=== PATIENT | female | born 1965 | race Caucasian/White ===

== ENCOUNTER 2020-07-06 09:00 | Emergency (ER) | payer OTHER ==
[2020-07-06 09:17] VITALS: BP 150/96; PULSE 88
--- NOTE | 2020-07-06 09:29 | EDM.PDOC ---
ED HPI GENERAL MEDICAL PROBLEM - General Chief Complaint: Respiratory Problem Stated Complaint: POST COVID FATIGUE,FLUID RETENSION SOB Time Seen by Provider: 07/06/20 09:24 Source of Information: Reports: Patient History Limitations: Reports: No Limitations - History of Present Illness INITIAL COMMENTS - FREE TEXT/NARRATIVE: 55-year-old female presents to the ED feeling increased shortness of breath on minimal exertion. She had COVID-19 illness back in December 2019 which really took its toll on her in terms of fatigue dyspnea cough and weakness. She states on minimal exertion today she developed O2 sats of 89%. She is aware of dyspnea on exertion. At rest her sats went up to 97% lying in bed. She denies cough or sputum production. No fever or chills. No central chest pain. She has no history of asthma. She does have a history of subclinical hypothyroidism and is to get her TSH checked shortly and therefore will be done today. Other medications include metoprolol tartrate 50 mg daily for hypertension and Mirapex at bedtime for restless leg syndrome. She denies any orthopnea or PND. Onset: Gradual Onset Date: 06/29/20 (Gradual worsening dyspnea over the last week.) Duration: Week(s):, Getting Worse, Waxing/Waning Location: Reports: Chest (Dyspnea on minimal exertion.) Quality: Reports: Other Severity: Moderate (Dyspnea.) Improves with: Reports: Rest Worsens with: Reports: Other Context: Reports: Activity. Denies: Exercise, Lifting, Sick Contact, Trauma, Other Associated Symptoms: Reports: Malaise. 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.) - Related Data Allergies Allergy/AdvReac Type Severity Reaction Status Date / Time haloperidol [From Haldol] Allergy Rash Verified 07/06/20 09:18 metoclopramide HCl AdvReac Tachycardia Verified 07/06/20 09:17 [From Reglan] morphine AdvReac Tachycardia Verified 07/06/20 09:17 prochlorperazine maleate AdvReac Tachycardia Verified 07/06/20 09:17 [From Compazine] Home Meds: Home Meds Metoprolol Tartrate [Lopressor] 50 mg PO DAILY 06/26/13 [History] Pramipexole [Mirapex] 0.5 mg PO BEDTIME 01/27/18 [History] Past Medical History HEENT History: Reports: Impaired Vision Cardiovascular History: Reports: Hypertension Genitourinary History: Reports: Renal Calculus Other Genitourinary History: kidney stones 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 Musculoskeletal History: collar bone Neurological History: Reports: Migraines, Other (See Below) Other Neuro History: fibromyalgia Psychiatric History: Reports: Depression Endocrine/Metabolic History: Reports: Obesity/BMI 30+ Hematologic History: Reports: Other (See Below) Immunologic History: Reports: Other (See Below) Other Immunologic History: undiagnosed autoimmune disorder - Infectious Disease History Infectious Disease History: Reports: Chicken Pox, Novel Coronavirus Other Infectious Disease History: covid Dec 2019 - Past Surgical History HEENT Surgical History: Reports: Tonsillectomy GI Surgical History: Reports: Cholecystectomy Female Surgical History: Reports: Hysterectomy, Other (See Below) Social & Family History - Family History Family Medical History: No Pertinent Family History - Tobacco Use Tobacco Use Status *Q: Never Tobacco User - Caffeine Use Caffeine Use: Reports: Coffee - Recreational Drug Use Recreational Drug Use: No - Living Situation & Occupation Living situation: Reports: , with Spouse, with Family (1 child) Occupation: Employed (RN at the [employer]) ED ROS GENERAL - Review of Systems Review Of Systems: See Below Constitutional: Reports: Malaise, Weakness, Fatigue, Decreased Appetite. Denies: Fever, Chills HEENT: Reports: Glasses Respiratory: Reports: Shortness of Breath. Denies: Wheezing, Pleuritic Chest Pain, Cough, Sputum, Hemoptysis, Other Cardiovascular: Reports: Blood Pressure Problem, Dyspnea on Exertion (Mild edema lower extremities.), Edema. Denies: Chest Pain, Claudication, Lightheadedness, Orthopnea, Palpitations Endocrine: Reports: Fatigue GI/Abdominal: Reports: Decreased Appetite : Reports: No Symptoms Musculoskeletal: Reports: Back Pain Skin: Reports: No Symptoms Neurological: Reports: No Symptoms Psychiatric: Reports: No Symptoms Hematologic/Lymphatic: Reports: No Symptoms Immunologic: Reports: No Symptoms ED EXAM, GENERAL - Physical Exam Exam: See Below Exam Limited By: No Limitations General Appearance: Alert, WD/WN, No Apparent Distress, Other (Temperature is 36.2. Heart rate 88 and sinus respiratory 17 with O2 sats of 95% room air BP 150/96.) Eye Exam: Bilateral Eye: Normal Inspection (No blepharal pallor or scleral icterus.), PERRL Throat/Mouth: Normal Inspection, Normal Lips, Normal Oropharynx Head: Atraumatic, Normocephalic Neck: Normal Inspection, Supple, Non-Tender, Full Range of Motion. No: Lymphadenopathy (L), Lymphadenopathy (R), Thyromegaly Respiratory/Chest: No Respiratory Distress, Lungs Clear, Normal Breath Sounds, No Accessory Muscle Use Cardiovascular: Normal Peripheral Pulses, Regular Rate, Rhythm, No Edema, No Gallop, No Murmur, No Rub Peripheral Pulses: 3+: Carotid (L), Carotid (R), Posterior Tibial (L), Posterior Tibial (R), Dorsalis Pedis (L), Dorsalis Pedis (R) Back Exam: Normal Inspection, Full Range of Motion. No: CVA Tenderness (L), CVA Tenderness (R) Extremities: Normal Inspection, Normal Range of Motion (Trace pitting edema around the ankles.), Non-Tender, Pedal Edema, Other Neurological: Alert, Oriented, CN II-XII Intact, Normal Cognition, Normal Gait Psychiatric: Normal Affect, Normal Mood Skin Exam: Warm, Dry (Compression of her lower extremities reveals no evidence of DVT clinically.), Intact, Normal Color, No Rash #1 Interpretation EKG Date: 07/06/20 Time: 09:48 Rhythm: NSR Rate (Beats/Min): 76 [place]: Normal P-Wave: Present QRS: Normal ST-T: Normal QT: Normal EKG Interpretation Comments: Normal ECG Course - Vital Signs Last Recorded V/S: Last Vital Signs Temp 36.2 C 07/06/20 09:13 Pulse 88 07/06/20 09:13 Resp 17 07/06/20 09:13 BP 150/96 H 07/06/20 09:13 Pulse Ox 95 07/06/20 09:13 - Orders/Labs/Meds Orders: Active Orders 24 hr Category Date Time Status EKG Documentation Completion [RC] STAT Care 07/06/20 09:26 Active Chest 1V Frontal [CR] Stat Exams 07/06/20 09:24 Taken Labs: Laboratory Tests 07/06/20 07/06/20 07/06/20 Range/Units 09:36 09:36 09:36 WBC 6.82 (3.98-10.04) K/mm3 RBC 4.96 (3.98-5.22) M/mm3 Hgb 14.8 (11.2-15.7) gm/dl Hct 47.7 H (34.1-44.9) % MCV 96.2 H D (79.4-94.8) fl MCH 29.8 (25.6-32.2) pg MCHC 31.0 L (32.2-35.5) g/dl RDW Std Deviation 48.3 H (36.4-46.3) fL Plt Count 234 (182-369) K/mm3 MPV 10.2 (9.4-12.3) fl Neut % (Auto) 58.5 (34.0-71.1) % Lymph % (Auto) 30.9 (19.3-51.7) % [place] % (Auto) 7.5 (4.7-12.5) % Eos % (Auto) 2.1 (0.7-5.8) Baso % (Auto) 0.6 (0.1-1.2) % Neut # (Auto) 3.99 (1.56-6.13) K/mm3 Lymph # (Auto) 2.11 (1.18-3.74) K/mm3 [place] # (Auto) 0.51 H (0.24-0.36) K/mm3 Eos # (Auto) 0.14 (0.04-0.36) K/mm3 Baso # (Auto) 0.04 (0.01-0.08) K/mm3 PT (9.7-12.0) SECONDS INR D-Dimer, Quantitative 0.30 (0.19-0.50) mg/L Sodium 143 (136-145) mEq/L Potassium 4.9 (3.5-5.1) mEq/L Chloride 106 (98-107) mEq/L Carbon Dioxide 28 (21-32) mEq/L Anion Gap 13.9 (5-15) BUN 16 (7-18) mg/dL Creatinine 1.2 H (0.55-1.02) mg/dL Est Cr Clr Drug Dosing 44.66 mL/min Estimated GFR (MDRD) 46 (>60) mL/min BUN/Creatinine Ratio 13.3 L (14-18) Glucose 141 H (70-99) mg/dL Calcium 8.9 (8.5-10.1) mg/dL Magnesium 1.9 (1.8-2.4) mg/dL Total Bilirubin 0.3 (0.2-1.0) mg/dL AST 27 (15-37) U/L ALT 51 (14-59) U/L Alkaline Phosphatase 60 (46-116) U/L C-Reactive Protein 0.7 (<1.0) mg/dL NT-Pro-B Natriuret Pep (0-125) pg/mL Total Protein 7.3 (6.4-8.2) g/dl Albumin 3.9 (3.4-5.0) g/dl Globulin 3.4 gm/dL Albumin/Globulin Ratio 1.2 (1-2) TSH 3rd Generation 1.396 (0.358-3.74) uIU/mL 07/06/20 07/06/20 Range/Units 09:36 09:36 WBC (3.98-10.04) K/mm3 RBC (3.98-5.22) M/mm3 Hgb (11.2-15.7) gm/dl Hct (34.1-44.9) % MCV (79.4-94.8) fl MCH (25.6-32.2) pg MCHC (32.2-35.5) g/dl RDW Std Deviation (36.4-46.3) fL Plt Count (182-369) K/mm3 MPV (9.4-12.3) fl Neut % (Auto) (34.0-71.1) % Lymph % (Auto) (19.3-51.7) % [place] % (Auto) (4.7-12.5) % Eos % (Auto) (0.7-5.8) Baso % (Auto) (0.1-1.2) % Neut # (Auto) (1.56-6.13) K/mm3 Lymph # (Auto) (1.18-3.74) K/mm3 [place] # (Auto) (0.24-0.36) K/mm3 Eos # (Auto) (0.04-0.36) K/mm3 Baso # (Auto) (0.01-0.08) K/mm3 PT 9.9 (9.7-12.0) SECONDS INR < 0.93 D-Dimer, Quantitative (0.19-0.50) mg/L Sodium (136-145) mEq/L Potassium (3.5-5.1) mEq/L Chloride (98-107) mEq/L Carbon Dioxide (21-32) mEq/L Anion Gap (5-15) BUN (7-18) mg/dL Creatinine (0.55-1.02) mg/dL Est Cr Clr Drug Dosing mL/min Estimated GFR (MDRD) (>60) mL/min BUN/Creatinine Ratio (14-18) Glucose (70-99) mg/dL Calcium (8.5-10.1) mg/dL Magnesium (1.8-2.4) mg/dL Total Bilirubin (0.2-1.0) mg/dL AST (15-37) U/L ALT (14-59) U/L Alkaline Phosphatase (46-116) U/L C-Reactive Protein (<1.0) mg/dL NT-Pro-B Natriuret Pep 84 (0-125) pg/mL Total Protein (6.4-8.2) g/dl Albumin (3.4-5.0) g/dl Globulin gm/dL Albumin/Globulin Ratio (1-2) TSH 3rd Generation (0.358-3.74) uIU/mL - Radiology Interpretation Free Text/Narrative:: 55-year-old female presents to the ED with dyspnea on minimal exertion. She feels this has been present ever since she had COVID-19 illness in December last year. Seems to be getting worse rather than better particularly of note lately over the last week. Minimal exertion will cause dyspnea O2 sats went down to 89% on exertion prior to coming to the ED. Examination reveals a few crackles lung bases that clear with coughing and suspect this is due to atelectasis. Heart is sinus and regular. JVD is not elevated. No significant dependent edema. No clinical evidence of DVT in either leg. Plan ECG to be done. Chest x-ray portably. Routine labs to be done as well as a D-dimer and a TSH. - Re-Assessments/Exams Free Text/Narrative Re-Assessment/Exam: 07/06/20 10:13 chest x-ray done portably reveals normal cardiac silhouette. Perhaps very mild diffuse vascular congestion pattern. No pneumothorax no pleural effusion. 07/06/20 10:22 White count is normal at 6.82. The differential shows 59% neutrophils. Hemoglobin is 14.8 with hematocrit of 47.7. MCV is 96.2. Platelet count 234,000. PT is 9.9 with an INR of less than 0.93. D-dimer is 0.30. 07/06/20 10:34 Sodium is 143 with a potassium of 4.9. Chloride 106 with a bicarb of 28. Anion gap is 13.9. BUN is 16 with a creatinine of 1.2. Estimated GFR is 46. Glucose is 141. Calcium 8.9 with a magnesium of 1.9. Total bilirubin is 0.3 liver function normal. C-reactive protein 0.7 BNP 84. Total protein 7.3 albumin fraction 3.9 TSH was 1.396 normal 07/06/20 10:47: Went over the results with the patient. Nothing untoward was identified. It appears that she does have a form of deconditioning and likely secondary to post Covid 19 pneumonia. Discussed trying to rehabilitate her lungs by increasing gradual exercise programs. Patient was reassured to know that there was no sign of congestive heart failure and certainly no sign of pulmonary embolism. No other treatment was provided at this time. Departure - Departure Time of Disposition: 10:48 Disposition: Home, Self-Care 01 Condition: Fair Clinical Impression: SOB (shortness of breath) on exertion, Post-acute COVID-19 syndrome - Discharge Information Referrals: Jayden Lewis MD [Primary Care Provider] - Forms: ED Department Discharge Additional Instructions: Evaluation in the emergency room today in regards to low O2 sats that occurred on minimal exertion. Diagnosed with COVID-19 illness late last year which seem to affect you a good deal by history. Work-up done today through the emergency room today was to make sure there was no blood clots in your lungs and you had a normal D-dimer evaluation at 0.30 with no signs of blood clot in your lung. C hest x-ray also appeared to be within normal limits with no sign of any pneumonia or scar tissue or inflammation. There is no evidence of heart related illness. Clinically you have post COVID-19 illness. Treatment is to try and gradually increase exercise to improve stamina of the lungs to recover from this illness. Of note thyroid function today was also within normal limits. Results of these tests will be sent to Dr. Fowler. Sepsis Event Note (ED) - Evaluation Sepsis Screening Result: No Definite Risk - Focused Exam Vital Signs: Vital Signs Temp Pulse Resp BP Pulse Ox 07/06/20 09:13 36.2 C 88 17 150/96 H 95 - My Orders Last 24 Hours: My Active Orders 07/06/20 09:24 Chest 1V Frontal [CR] Stat 07/06/20 09:26 EKG Documentation Completion [RC] STAT - Assessment/Plan Last 24 Hours: My Active Orders 07/06/20 09:24 Chest 1V Frontal [CR] Stat 07/06/20 09:26 EKG Documentation Completion [RC] STAT
--- NOTE | 2020-07-06 11:06 | CR ---
Chest: Portable view of the chest was obtained. Comparison: Prior chest x-ray of 07/23/15. Heart size is within normal limits. Tortuous thoracic aorta is noted. Questionable minimal density is seen within the periphery of both lungs. Lungs otherwise are clear. Bony structures are grossly intact. Impression: 1. Possible mild parenchymal density peripherally within both lungs presumably due to mild Covid-19 pneumonia. Diagnostic code #3
== END 2020-07-06 10:59 | disposition home or self-care (01) ==
LOC: JD.ED 09:00
DX: R06.02 Shortness of breath (principal); I10 Essential (primary) hypertension; E66.9 Obesity, unspecified; Z88.5 Allergy status to narcotic agent; Z88.8 Allergy status to other drugs, medicaments and biological substances; Z86.16 Personal history of COVID-19; Z68.38 Body mass index [BMI] 38.0-38.9, adult
CPT/HCPCS: 36415; 71045; 71045-26; 80053; 83735; 83880; 84443; 85025; 85379; 85610; 86140; 93005; 99284; 99285-25

== ENCOUNTER 2021-07-22 11:31 | Inpatient (IN) | payer OTHER ==
[2021-07-22] MEDS ORDERED: Sodium Chloride 0.9% 10 ML Syringe FLUSH PRN ×2 (12:17→12:25)
[2021-07-22] MEDS ORDERED: Ondansetron 4 MG/2 ML SDV IVPUSH ONE ×2 (12:17→16:34)
[2021-07-22] MEDS ORDERED: Iopamidol 755 Mg/ML 100 ML Bottle IVPUSH ONE (12:25)
[2021-07-22] MEDS ORDERED: Sodium Chloride 0.9% 100 ML IV SCH (12:30)
[2021-07-22] MEDS ORDERED: Sodium Chloride 0.9% 1,000 ML IV SCH (12:30)
[2021-07-22] MEDS ORDERED: Metoclopramide 10 MG/2 ML SDV IVPUSH ONE (16:03)
[2021-07-22] MEDS ORDERED: HYDROmorphone 0.5 MG/0.5 ML Syringe IVPUSH ONE (16:15)
[2021-07-22] MEDS ORDERED: cefTRIAXone 2 GM in Sodium Chloride 0.9% 100 ML IV ONE (16:19)
[2021-07-22 17:06] LABS: CORONAVIRUS COVID-19 NAA NEGATIVE (NEGATIVE)
[2021-07-22] MEDS ORDERED: Ibuprofen 600 MG Tab PO PRN (19:02)
[2021-07-22] MEDS ORDERED: Pantoprazole 40 MG Vial ONE (19:02)
[2021-07-22] MEDS ORDERED: Acetaminophen/HYDROcodone 325-5 MG Tab PO PRN (19:02)
[2021-07-22] MEDS ORDERED: Piperacillin/Tazobactam 4.5 GM in Sodium Chloride 0.9% 100 ML IV ONE (19:11)
[2021-07-22] MEDS ORDERED: Pantoprazole 40 MG Vial IVPUSH ONE (19:15)
[2021-07-22] MEDS: Dextrose 5%-0.45% NaCl 1,000 ML IV SCH (20:18)
[2021-07-22] MEDS: Metoprolol Tartrate 50 MG Tab PO SCH (20:18)
[2021-07-22] MEDS: Zolpidem 5 MG Tab PO PRN (20:21)
[2021-07-22] MEDS: Pramipexole 0.5 MG Tab PO SCH (20:21)
[2021-07-22] MEDS: Ondansetron 4 MG Tab.DIS PO PRN (21:14)
[2021-07-22] MEDS: Acetaminophen 325 MG Tab PO PRN (21:37)
[2021-07-23] MEDS: Dextrose 5%-0.45% NaCl 1,000 ML IV SCH ×3 (03:50→21:48)
[2021-07-23] MEDS: Piperacillin/Tazobactam 4.5 GM in Sodium Chloride 0.9% 100 ML IV SCH ×2 (08:51→16:51)
[2021-07-23] MEDS: Enoxaparin 40 MG/0.4 ML Syringe SUBCUT SCH (08:53)
[2021-07-23 11:00] LABS: HEMOGLOBIN A1C 6.6 %
[2021-07-23] MEDS: Pramipexole 0.5 MG Tab PO SCH (20:05)
[2021-07-23] MEDS: Metoprolol Tartrate 50 MG Tab PO SCH (20:24)
[2021-07-24] MEDS: Piperacillin/Tazobactam 4.5 GM in Sodium Chloride 0.9% 100 ML IV SCH ×4 (00:17→23:57)
[2021-07-24] MEDS: Acetaminophen 325 MG Tab PO PRN ×2 (04:31→11:20)
[2021-07-24] MEDS: Dextrose 5%-0.45% NaCl 1,000 ML IV SCH ×3 (04:32→15:18)
[2021-07-24] MEDS: Enoxaparin 40 MG/0.4 ML Syringe SUBCUT SCH (07:59)
[2021-07-24] MEDS: Metoprolol Tartrate 50 MG Tab PO SCH (20:46)
[2021-07-24] MEDS: Pramipexole 0.5 MG Tab PO SCH (20:46)
[2021-07-24] MEDS: Zolpidem 5 MG Tab PO PRN (21:51)
[2021-07-25] MEDS: Piperacillin/Tazobactam 4.5 GM in Sodium Chloride 0.9% 100 ML IV SCH ×2 (08:33→16:35)
[2021-07-25] MEDS: Enoxaparin 40 MG/0.4 ML Syringe SUBCUT SCH (08:41)
[2021-07-25] MEDS: Pramipexole 0.5 MG Tab PO SCH (20:47)
[2021-07-25] MEDS: Metoprolol Succinate 50 MG Tab.ER PO SCH (20:47)
[2021-07-25] MEDS: Zolpidem 5 MG Tab PO PRN (20:48)
[2021-07-26] MEDS: Piperacillin/Tazobactam 4.5 GM in Sodium Chloride 0.9% 100 ML IV SCH ×2 (00:17→08:42)
[2021-07-26] MEDS: Enoxaparin 40 MG/0.4 ML Syringe SUBCUT SCH (08:42)
[2021-07-26] MEDS ORDERED: Piperacillin/Tazobactam 4.5 GM in Sodium Chloride 0.9% 100 ML IV SCH (16:00)
[2021-07-26] MEDS: Ondansetron 4 MG Tab.DIS PO PRN (18:21)
[2021-07-26] MEDS: Metoprolol Succinate 50 MG Tab.ER PO SCH (20:52)
[2021-07-26] MEDS: Pramipexole 0.5 MG Tab PO SCH (20:57)
[2021-07-26] MEDS: Zolpidem 5 MG Tab PO PRN (21:03)
[2021-07-27] MEDS ORDERED: Vancomycin 1 GM, Vancomycin 250 MG in Sodium Chloride 0.9% 250 ML IV SCH (01:00)
[2021-07-27 08:37] VITALS: BP 128/77; PULSE 81
[2021-07-27] MEDS: Enoxaparin 40 MG/0.4 ML Syringe SUBCUT SCH (08:39)
== END 2021-07-27 09:50 | disposition home or self-care (01) | DRG 698 ==
LOC: JD.ED 11:31 → JD.ICU 17:14
PROVIDERS: ADMIT Pediatrics; ATTEND Pediatrics
DX: T83.593A Infection and inflammatory reaction due to other urinary stents, initial encounter (principal); A41.02 Sepsis due to Methicillin resistant Staphylococcus aureus; N10 Acute pyelonephritis; R31.9 Hematuria, unspecified; I10 Essential (primary) hypertension; Z20.822 Contact with and (suspected) exposure to COVID-19; G43.909 Migraine, unspecified, not intractable, without status migrainosus; E66.9 Obesity, unspecified; F32.A Depression, unspecified; M79.7 Fibromyalgia; M54.50 Low back pain, unspecified; Z86.16 Personal history of COVID-19; Z90.49 Acquired absence of other specified parts of digestive tract; Z88.5 Allergy status to narcotic agent; Z87.442 Personal history of urinary calculi; Z88.8 Allergy status to other drugs, medicaments and biological substances; Z90.710 Acquired absence of both cervix and uterus; Z68.38 Body mass index [BMI] 38.0-38.9, adult
CPT/HCPCS: 0241U; 36415; 71275; 71275-26; 74176; 74176-26; 80048; 80053; 80202; 81001; 83036; 83605; 83690; 83735; 83880; 84443; 84484; 85007; 85025; 85027; 85379; 85610; 85730; 86140; 87040; 87077; 87086; 87088; 87154; 87186; 93005; 93010; 96361; 96365; 96375; 96376; 99285; 99285-25; A9270-GY; C9113; J0696; J1170; J1650; J2405; J2543; J3370; J3490; J7030; J7042; J7050; Q9967

== ENCOUNTER 2021-09-06 07:16 | Emergency (ER) | payer OTHER ==
[2021-09-06] MEDS ORDERED: Ondansetron 4 MG/2 ML SDV IVPUSH ONE (08:20)
[2021-09-06] MEDS ORDERED: Sodium Chloride 0.9% 10 ML Syringe FLUSH PRN (08:20)
[2021-09-06] MEDS ORDERED: HYDROmorphone 0.5 MG/0.5 ML Syringe IVPUSH ONE (08:21)
[2021-09-06] MEDS ORDERED: Sodium Chloride 0.9% 1,000 ML IV SCH (08:30)
[2021-09-06] MEDS ORDERED: Ketorolac 30 MG/ML SDV IVPUSH ONE (10:11)
[2021-09-06 12:32] VITALS: BP 126/64; PULSE 76
== END 2021-09-06 12:30 | disposition home or self-care (01) ==
LOC: JD.ED 07:16
DX: N13.2 Hydronephrosis with renal and ureteral calculous obstruction (principal); Z88.5 Allergy status to narcotic agent; Z88.8 Allergy status to other drugs, medicaments and biological substances; Z86.16 Personal history of COVID-19
CPT/HCPCS: 36415; 74176; 80053; 81001; 83605; 83690; 83880; 84484; 85025; 87040; 93005; 96361; 96374; 96375; 99284; J1170; J1885; J2405; J3490; J7030; 93010

== ENCOUNTER 2022-08-23 01:44 | Inpatient (IN) | payer OTHER ==
[2022-08-23] MEDS ORDERED: HYDROmorphone 1 MG/ML Syringe IVPUSH ONE (02:06)
[2022-08-23] MEDS ORDERED: Ondansetron 4 MG/2 ML SDV IVPUSH ONE (02:06)
[2022-08-23] MEDS ORDERED: Acetaminophen 325 MG Tab PO ONE (02:07)
[2022-08-23] MEDS ORDERED: Dextrose 5%-0.9% NaCl 1,000 ML IV SCH (02:15)
[2022-08-23 02:44] LABS: HEMATOCRIT 47.6 % (34.1-44.9); HEMOGLOBIN 15.6 gm/dl (11.2-15.7); MEAN CORPUSCULAR HEMOGLOBIN 30.4 pg (25.6-32.2); MEAN CORPUSCULAR HGB CONC 32.8 g/dl (32.2-35.5); MEAN CORPUSCULAR VOLUME 92.6 fl (79.4-94.8); PLATELET COUNT,PLT 148 K/mm3 (182-369); RED BLOOD CELL COUNT 5.14 M/mm3 (3.98-5.22); WHITE BLOOD CELL COUNT,WBC 8.63 K/mm3 (3.98-10.04)
[2022-08-23 03:10] LABS: ALBUMIN 3.7 g/dl (3.4-5.0); ANION GAP 12.1 (5-15); BILIRUBIN TOTAL 0.8 mg/dL (0.2-1.0); BUN/CREATININE RATIO 12.1 (14-18); C-REACTIVE PROTEIN 10.4 mg/dL (<1.0); CALCIUM 9.7 mg/dL (8.5-10.1); CREATININE 1.4 mg/dL (0.55-1.02); EST CRCL DRUG DOSING (CG) 37.36 mL/min; MAGNESIUM 1.7 mg/dL (1.8-2.4); POTASSIUM,K 4.1 mEq/L (3.5-5.1); PROTEIN TOTAL,TP 7.6 g/dl (6.4-8.2)
[2022-08-23 03:13] LABS: LACTIC ACID 1.4 mmol/L (0.4-2.0)
[2022-08-23] MEDS ORDERED: cefTRIAXone 2 GM in Sodium Chloride 0.9% 100 ML IV ONE (03:19)
[2022-08-23] MEDS ORDERED: VANCOmycin 2 GM/400 ML 2 GM in Premix Bag 1 BAG IV ONE (03:19)
[2022-08-23 03:39] LABS: BAND PERCENT MAN 5 % (0-10); BASOPHILS PERCENT MAN 1 (0.1-1.2); EOSINOPHILS PERCENT MAN 0 % (0.7-5.8); LYMPHOCYTES % ATYPICAL MANUAL 0 %; LYMPHOCYTES PERCENT MAN 7 % (20-40); MONOCYTES PERCENT MAN 1 % (2-10)
[2022-08-23 03:40] LABS: PLATELET COUNT ESTIMATE ADEQUATE
[2022-08-23 06:36] LABS: APPEARANCE,URINE SLT CLOUDY (Clear); BILIRUBIN,URINE NEGATIVE (Negative); COLOR,URINE YELLOW (Yellow); GLUCOSE,URINE NEGATIVE (Negative); KETONES,URINE NEGATIVE (Negative); LEUKOCYTE ESTERASE,URINE TRACE (Negative); NITRITE,URINE NEGATIVE (Negative); OCCULT BLOOD,URINE 1+ (Negative); PH,URINE 5.5 (5.0-8.0); PROTEIN,URINE 3+ (Negative); UROBILINOGEN,URINE 0.2 (0.2-1.0)
[2022-08-23 06:57] LABS: BACTERIA,URINE FEW /hpf (FEW); EPITHELIAL CELLS,URINE 0-5 /hpf (0-5); FINE GRANULAR CASTS,URINE 0-5 /lpf (0-5); MUCUS,URINE RARE /hpf (FEW); RBC,URINE 0-5 /hpf (0-5); WBC CLUMPS,URINE FEW /hpf (NOT SEEN)
[2022-08-23] MEDS ORDERED: Sodium Chloride 0.9% 10 ML Syringe FLUSH PRN (07:35)
[2022-08-23] MEDS ORDERED: Iopamidol 755 Mg/ML 100 ML Bottle IVPUSH ONE (07:35)
[2022-08-23] MEDS ORDERED: Sodium Chloride 0.9% 100 ML IV SCH (07:45)
[2022-08-23] MEDS: Lactated Ringers 1,000 ML IV SCH ×2 (08:59→14:02)
[2022-08-23] MEDS ORDERED: Lactated Ringers 1,000 ML IV ONE (15:10)
[2022-08-23] MEDS ORDERED: Albuterol/Ipratropium 3.0-0.5 MG/3 ML Neb Soln NEB PRN (15:18)
[2022-08-23] MEDS ORDERED: Ondansetron 4 MG/2 ML SDV IV PRN (15:18)
[2022-08-23] MEDS: Acetaminophen 325 MG Tab PO PRN ×2 (18:49→23:01)
[2022-08-23] MEDS: Pramipexole 0.5 MG Tab PO SCH (20:56)
[2022-08-23] MEDS: Metoprolol Succinate 50 MG Tab.ER PO SCH (20:56)
[2022-08-23] MEDS: cefTRIAXone 1 GM in Sodium Chloride 0.9% 100 ML IV SCH (20:56)
[2022-08-23] MEDS ORDERED: Temazepam 7.5 MG Cap PO PRN (21:00)
[2022-08-23] MEDS: Ketorolac 15 MG/ML SDV IVPUSH PRN (22:38)
[2022-08-24 06:06] LABS: BASOPHILS ABSOLUTE AUTO 0.02 K/mm3 (0.01-0.08); BASOPHILS PERCENT AUTO 0.3 % (0.1-1.2); EOSINOPHILS ABSOLUTE AUTO 0.02 K/mm3 (0.04-0.36); EOSINOPHILS PERCENT AUTO 0.3 (0.7-5.8); IMMATURE GRAN ABSOLUTE AUTO 0.02 K/mm3 (0.00-0.10); IMMATURE GRAN PERCENT AUTO 0.3 % (<=1.0); LYMPHOCYTES ABSOLUTE AUTO 1.35 K/mm3 (1.18-3.74); LYMPHOCYTES PERCENT AUTO 18.3 % (19.3-51.7); MEAN CORPUSCULAR HEMOGLOBIN 29.7 pg (25.6-32.2); MEAN CORPUSCULAR HGB CONC 30.7 g/dl (32.2-35.5); MEAN CORPUSCULAR VOLUME 96.6 fl (79.4-94.8); MONOCYTES ABSOLUTE AUTO 0.53 K/mm3 (0.24-0.36); MONOCYTES PERCENT AUTO 7.2 % (4.7-12.5); NEUTROPHILS ABSOLUTE AUTO 5.44 K/mm3 (1.56-6.13); NEUTROPHILS PERCENT AUTO 73.6 % (34.0-71.1); PLATELET COUNT,PLT 136 K/mm3 (182-369); RED BLOOD CELL COUNT 4.45 M/mm3 (3.98-5.22); WHITE BLOOD CELL COUNT,WBC 7.38 K/mm3 (3.98-10.04)
[2022-08-24] MEDS: Ketorolac 15 MG/ML SDV IVPUSH PRN ×2 (06:11→15:57)
[2022-08-24 06:20] LABS: HEMOGLOBIN 13.2 gm/dl (11.2-15.7)
[2022-08-24 06:31] LABS: ANION GAP 11.7 (5-15); BUN/CREATININE RATIO 14.5 (14-18); CREATININE 1.1 mg/dL (0.55-1.02); EST CRCL DRUG DOSING (CG) 47.55 mL/min; MAGNESIUM 1.7 mg/dL (1.8-2.4); POTASSIUM,K 4.7 mEq/L (3.5-5.1)
[2022-08-24 06:37] LABS: CALCIUM 8.1 mg/dL (8.5-10.1)
[2022-08-24] MEDS: Enoxaparin 40 MG/0.4 ML Syringe SUBCUT SCH (09:34)
[2022-08-24] MEDS: Acetaminophen 325 MG Tab PO PRN (15:55)
[2022-08-24] MEDS ORDERED: oxyCODONE 5 MG Tab PO PRN (16:33)
[2022-08-24] MEDS: Metoprolol Succinate 50 MG Tab.ER PO SCH (20:09)
[2022-08-24] MEDS: Pramipexole 0.5 MG Tab PO SCH (20:09)
[2022-08-24] MEDS: cefTRIAXone 1 GM in Sodium Chloride 0.9% 100 ML IV SCH (20:10)
[2022-08-25 07:37] LABS: A/G RATIO 0.7 (1-2); ALBUMIN 2.9 g/dl (3.4-5.0); BILIRUBIN TOTAL 0.3 mg/dL (0.2-1.0); BUN/CREATININE RATIO 13.6 (14-18); CALCIUM 8.6 mg/dL (8.5-10.1); CREATININE 1.1 mg/dL (0.55-1.02); EST CRCL DRUG DOSING (CG) 47.55 mL/min; PROTEIN TOTAL,TP 6.9 g/dl (6.4-8.2)
[2022-08-25 07:39] LABS: BASOPHILS ABSOLUTE AUTO 0.01 K/mm3 (0.01-0.08); BASOPHILS PERCENT AUTO 0.2 % (0.1-1.2); EOSINOPHILS ABSOLUTE AUTO 0.09 K/mm3 (0.04-0.36); EOSINOPHILS PERCENT AUTO 1.7 (0.7-5.8); HEMATOCRIT 44.1 % (34.1-44.9); HEMOGLOBIN 13.4 gm/dl (11.2-15.7); IMMATURE GRAN ABSOLUTE AUTO 0.02 K/mm3 (0.00-0.10); IMMATURE GRAN PERCENT AUTO 0.4 % (<=1.0); LYMPHOCYTES ABSOLUTE AUTO 1.75 K/mm3 (1.18-3.74); LYMPHOCYTES PERCENT AUTO 33.1 % (19.3-51.7); MEAN CORPUSCULAR HEMOGLOBIN 29.3 pg (25.6-32.2); MEAN CORPUSCULAR HGB CONC 30.4 g/dl (32.2-35.5); MEAN CORPUSCULAR VOLUME 96.5 fl (79.4-94.8); MEAN PLATELET VOLUME 11.3 fl (9.4-12.3); MONOCYTES ABSOLUTE AUTO 0.56 K/mm3 (0.24-0.36); MONOCYTES PERCENT AUTO 10.6 % (4.7-12.5); NEUTROPHILS ABSOLUTE AUTO 2.85 K/mm3 (1.56-6.13); PLATELET COUNT,PLT 141 K/mm3 (182-369); RED BLOOD CELL COUNT 4.57 M/mm3 (3.98-5.22); WHITE BLOOD CELL COUNT,WBC 5.28 K/mm3 (3.98-10.04)
[2022-08-25 08:09] VITALS: BP 130/89; PULSE 72
[2022-08-25] MEDS: Enoxaparin 40 MG/0.4 ML Syringe SUBCUT SCH (08:52)
[2022-08-25] MEDS ORDERED: Levofloxacin 500 MG Tab PO SCH (09:00)
[2022-08-25 11:06] LABS: HEMOGLOBIN A1C 6.4 %
== END 2022-08-25 12:08 | disposition home or self-care (01) | DRG 189 ==
LOC: JD.ED 01:44 → JD.MS 13:19
PROVIDERS: ADMIT Hospitalist; ATTEND Hospitalist
DX: J96.01 Acute respiratory failure with hypoxia (principal); R65.11 Systemic inflammatory response syndrome (SIRS) of non-infectious origin with acute organ dysfunction; N39.0 Urinary tract infection, site not specified; B96.1 Klebsiella pneumoniae [K. pneumoniae] as the cause of diseases classified elsewhere; I10 Essential (primary) hypertension; M79.7 Fibromyalgia; G43.909 Migraine, unspecified, not intractable, without status migrainosus; I27.21 Secondary pulmonary arterial hypertension; E66.9 Obesity, unspecified; F32.A Depression, unspecified; Z98.890 Other specified postprocedural states; Z90.49 Acquired absence of other specified parts of digestive tract; Z90.710 Acquired absence of both cervix and uterus; Z79.899 Other long term (current) drug therapy; Z86.16 Personal history of COVID-19; Z88.8 Allergy status to other drugs, medicaments and biological substances; Z87.442 Personal history of urinary calculi; Z68.39 Body mass index [BMI] 39.0-39.9, adult
CPT/HCPCS: 36415; 71045; 71045-26; 71275; 71275-26; 74176; 74176-26; 80048; 80053; 81001; 83036; 83605; 83735; 83880; 84484; 85007; 85025; 85027; 85379; 86140; 87040; 87077; 87086; 87154; 87186; 94761; 96361; 96365; 96367; 96375; 99285; 99285-25; A9270-GY; J0696; J1170; J1650; J1885; J2405; J3370; J3490; J7042; J7120; Q9967

== ENCOUNTER 2022-09-02 17:36 | Emergency (ER) | payer OTHER ==
[2022-09-02 17:48] VITALS: BP 148/94; PULSE 73
[2022-09-02] MEDS ORDERED: Sodium Chloride 0.9% 10 ML Syringe FLUSH PRN (18:03)
[2022-09-02 18:18] LABS: APPEARANCE,URINE CLEAR (Clear); BILIRUBIN,URINE NEGATIVE (Negative); COLOR,URINE LIGHT YELLOW (Yellow); GLUCOSE,URINE NEGATIVE (Negative); KETONES,URINE NEGATIVE (Negative); LEUKOCYTE ESTERASE,URINE 1+ (Negative); NITRITE,URINE NEGATIVE (Negative); OCCULT BLOOD,URINE 1+ (Negative); PROTEIN,URINE NEGATIVE (Negative); UROBILINOGEN,URINE 0.2 (0.2-1.0)
[2022-09-02 18:18] LABS: BASOPHILS ABSOLUTE AUTO 0.03 K/mm3 (0.01-0.08); BASOPHILS PERCENT AUTO 0.4 % (0.1-1.2); EOSINOPHILS ABSOLUTE AUTO 0.07 K/mm3 (0.04-0.36); EOSINOPHILS PERCENT AUTO 0.8 (0.7-5.8); HEMOGLOBIN 15.8 gm/dl (11.2-15.7); IMMATURE GRAN ABSOLUTE AUTO 0.03 K/mm3 (0.00-0.10); IMMATURE GRAN PERCENT AUTO 0.4 % (<=1.0); LYMPHOCYTES ABSOLUTE AUTO 2.82 K/mm3 (1.18-3.74); MEAN CORPUSCULAR HEMOGLOBIN 29.5 pg (25.6-32.2); MEAN CORPUSCULAR HGB CONC 32.2 g/dl (32.2-35.5); MEAN CORPUSCULAR VOLUME 91.6 fl (79.4-94.8); MONOCYTES PERCENT AUTO 7.2 % (4.7-12.5); NEUTROPHILS ABSOLUTE AUTO 4.75 K/mm3 (1.56-6.13); NEUTROPHILS PERCENT AUTO 57.2 % (34.0-71.1); PLATELET COUNT,PLT 325 K/mm3 (182-369); RED BLOOD CELL COUNT 5.35 M/mm3 (3.98-5.22)
[2022-09-02 18:35] LABS: BACTERIA,URINE FEW /hpf (FEW); HYALINE CASTS,URINE 0-5 /lpf (0-5); MUCUS,URINE RARE /hpf (FEW); RBC,URINE 0-5 /hpf (0-5); SQUAMOUS EPITHELIAL CELLS,UR 0-5 /hpf (0-5)
[2022-09-02 18:45] LABS: ALANINE AMINOTRANSFERASE,ALT 39 U/L (14-59); ALKALINE PHOSPHATASE 60 U/L (46-116); ANION GAP 11.3 (5-15); ASPARTATE AMNIOTRANSFERASE,AST 34 U/L (15-37); BILIRUBIN TOTAL 0.5 mg/dL (0.2-1.0); BLOOD UREA NITROGEN,BUN 19 mg/dL (7-18); BUN/CREATININE RATIO 17.3 (14-18); C-REACTIVE PROTEIN <0.2 mg/dL (<1.0); CALCIUM 9.2 mg/dL (8.5-10.1); CARBON DIOXIDE,CO2 28 mEq/L (21-32); CHLORIDE,CL 104 mEq/L (98-107); CREATININE 1.1 mg/dL (0.55-1.02); EST CRCL DRUG DOSING (CG) 47.55 mL/min; ESTIMATED GFR 58 mL/min (>60); GLUCOSE RANDOM 96 mg/dL (70-99); POTASSIUM,K 4.3 mEq/L (3.5-5.1); PROTEIN TOTAL,TP 7.9 g/dl (6.4-8.2); SODIUM,NA 139 mEq/L (136-145); TROPONIN I HIGH SENSITIVITY 7 pg/mL (<=51)
[2022-09-02 18:53] LABS: LACTIC ACID 0.8 mmol/L (0.4-2.0)
[2022-09-02 19:23] LABS: CORONAVIRUS COVID-19 NAA NEGATIVE (NEGATIVE); INFLUENZA A NAA NEGATIVE (NEGATIVE)
== END 2022-09-02 20:45 | disposition home or self-care (01) ==
LOC: JD.ED 17:36
DX: R06.02 Shortness of breath (principal); R07.89 Other chest pain; R11.2 Nausea with vomiting, unspecified; I10 Essential (primary) hypertension; E66.9 Obesity, unspecified; Z68.37 Body mass index [BMI] 37.0-37.9, adult; Z86.16 Personal history of COVID-19; Z88.8 Allergy status to other drugs, medicaments and biological substances; Z88.5 Allergy status to narcotic agent; Z79.899 Other long term (current) drug therapy; Z20.822 Contact with and (suspected) exposure to COVID-19
CPT/HCPCS: 0240U; 36415; 71045; 80053; 81001; 83605; 83735; 83880; 84484; 85025; 85379; 86140; 87040; 87086; 93005; 99285; J3490; 93010; 99282

== ENCOUNTER 2022-12-14 06:00 | Day surgery (SDC) | payer OTHER ==
[~2022-12-14 06:00] MED LIST: Midazolam 1 MG/ML 2 ML SDV ONE; Ondansetron 4 MG/2 ML SDV ONE; Propofol 200 MG/20 ML SDV ONE; ceFAZolin 2 GM Vial ONE; fentaNYL 100 MCG/2 ML SDV ONE
[2022-12-14] MEDS ORDERED: Lidocaine 1% 10 ML MDV ONE (06:11)
[2022-12-14] MEDS ORDERED: Bupivacaine 0.25% 10 ML SDV ONE (06:11)
[2022-12-14] MEDS ORDERED: Lactated Ringers 1,000 ML IV SCH (06:45)
[2022-12-14] MEDS ORDERED: VANCOmycin 1.5 GM/300 ML 1.5 GM in Premix Bag 1 BAG IV ONE (07:00)
[2022-12-14] MEDS ORDERED: Ketorolac 30 MG/ML SDV IVPUSH ONE (07:44)
[2022-12-14] MEDS ORDERED: Ondansetron 4 MG/2 ML SDV IVPUSH ONE (07:50)
[2022-12-14 09:20] VITALS: BP 114/71; PULSE 85
== END 2022-12-14 08:40 | disposition home or self-care (01) ==
LOC: JD.SDS 06:00
PROVIDERS: ATTEND Orthopaedic Surgery
DX: G56.01 Carpal tunnel syndrome, right upper limb (principal); I10 Essential (primary) hypertension; M79.7 Fibromyalgia; G43.909 Migraine, unspecified, not intractable, without status migrainosus; F32.A Depression, unspecified; E66.9 Obesity, unspecified; Z79.899 Other long term (current) drug therapy; Z88.5 Allergy status to narcotic agent; Z88.8 Allergy status to other drugs, medicaments and biological substances; Z87.891 Personal history of nicotine dependence; Z68.38 Body mass index [BMI] 38.0-38.9, adult
CPT/HCPCS: 64721; J0690; J1885; J2250; J2405; J2704; J3010; J3370; J3490; J7120; 01810

== ENCOUNTER 2023-03-31 14:37 | Emergency (ER) | payer OTHER ==
[2023-03-31 15:16] LABS: BASOPHILS ABSOLUTE AUTO 0.1 K/mm3 (0.0-0.2); BASOPHILS PERCENT AUTO 0.6 % (0.0-1.0); EOSINOPHILS ABSOLUTE AUTO 0.1 K/mm3 (0.0-0.4); HEMATOCRIT 47.4 % (37.0-47.0); HEMOGLOBIN 15.4 gm/dl (12.0-16.0); IMMATURE GRAN ABSOLUTE AUTO 0.02 K/mm3 (0.00-0.05); IMMATURE GRAN PERCENT AUTO 0.2 % (0.0-0.4); LYMPHOCYTES ABSOLUTE AUTO 2.6 K/mm3 (1.0-4.8); LYMPHOCYTES PERCENT AUTO 32.1 % (24.0-44.0); MEAN CORPUSCULAR HGB CONC 32.5 g/dl (32.0-36.0); MEAN CORPUSCULAR VOLUME 92.4 fl (83.0-99.0); MONOCYTES ABSOLUTE AUTO 0.5 K/mm3 (0.0-0.8); MONOCYTES PERCENT AUTO 6.6 % (0.0-8.0); NEUTROPHILS ABSOLUTE AUTO 4.8 K/mm3 (1.8-7.7); NEUTROPHILS PERCENT AUTO 59.5 % (41.0-71.0); PLATELET COUNT,PLT 254 K/mm3 (150-400); RED BLOOD CELL COUNT 5.13 M/mm3 (4.10-5.30); WHITE BLOOD CELL COUNT,WBC 8.13 K/mm3 (3.9-11.3)
[2023-03-31 15:22] LABS: INR 0.93
[2023-03-31] MEDS: Aspirin 81 MG Tab.Chew PO ONE (15:33)
[2023-03-31] MEDS: Sodium Chloride 0.9% 10 ML Syringe FLUSH PRN (15:35)
[2023-03-31 15:36] LABS: A/G RATIO 1.1 (1-2); ALBUMIN 4.1 g/dl (3.4-5.0); ANION GAP 15.6 (5-15); BILIRUBIN TOTAL 0.4 mg/dL (0.2-1.0); BUN/CREATININE RATIO 15.3 (14-18); CALCIUM 9.8 mg/dL (8.5-10.1); CREATININE 1.5 mg/dL (0.55-1.02); EST CRCL DRUG DOSING (CG) 34.44 mL/min; MAGNESIUM 1.9 mg/dL (1.8-2.4); POTASSIUM,K 3.6 mEq/L (3.5-5.1)
[2023-03-31] MEDS: Sodium Chloride 0.9% 500 ML IV SCH (15:40)
[2023-03-31 18:43] VITALS: BP 100/63; PULSE 80
== END 2023-03-31 18:00 | disposition home or self-care (01) ==
LOC: JD.ED 14:37
DX: R07.89 Other chest pain (principal); I95.9 Hypotension, unspecified; I10 Essential (primary) hypertension; Z90.49 Acquired absence of other specified parts of digestive tract; Z86.16 Personal history of COVID-19; Z79.899 Other long term (current) drug therapy; Z88.5 Allergy status to narcotic agent; Z91.048 Other nonmedicinal substance allergy status
CPT/HCPCS: 36415; 71045; 80053; 83735; 83880; 84484; 85025; 85610; 93005; 96360; 99285; A9270; J3490; J7030

== ENCOUNTER 2024-08-14 11:36 | Emergency (ER) | payer OTHER ==
[2024-08-14 12:02] LABS: BASOPHILS ABSOLUTE AUTO 0.1 K/mm3 (0.0-0.2); BASOPHILS PERCENT AUTO 0.6 % (0.0-1.0); EOSINOPHILS ABSOLUTE AUTO 0.1 K/mm3 (0.0-0.4); HEMATOCRIT 46.3 % (37.0-47.0); HEMOGLOBIN 15.2 gm/dl (12.0-16.0); IMMATURE GRAN ABSOLUTE AUTO 0.03 K/mm3 (0.00-0.05); IMMATURE GRAN PERCENT AUTO 0.3 % (0.0-0.4); LYMPHOCYTES ABSOLUTE AUTO 2.8 K/mm3 (1.0-4.8); LYMPHOCYTES PERCENT AUTO 29.8 % (24.0-44.0); MEAN CORPUSCULAR HEMOGLOBIN 29.4 pg (28.0-32.0); MEAN CORPUSCULAR HGB CONC 32.8 g/dl (32.0-36.0); MEAN CORPUSCULAR VOLUME 89.6 fl (83.0-99.0); MEAN PLATELET VOLUME 10.5 fl (9.4-12.3); MONOCYTES ABSOLUTE AUTO 0.7 K/mm3 (0.0-0.8); MONOCYTES PERCENT AUTO 7.2 % (0.0-8.0); NEUTROPHILS ABSOLUTE AUTO 5.8 K/mm3 (1.8-7.7); NEUTROPHILS PERCENT AUTO 61.1 % (41.0-71.0); PLATELET COUNT,PLT 244 K/mm3 (150-400); RED BLOOD CELL COUNT 5.17 M/mm3 (4.10-5.30); WHITE BLOOD CELL COUNT,WBC 9.47 K/mm3 (3.9-11.3)
[2024-08-14] MEDS: Sodium Chloride 0.9% 1,000 ML IV SCH (12:21)
[2024-08-14] MEDS: Ondansetron 4 MG/2 ML SDV IVPUSH ONE (12:21)
[2024-08-14] MEDS: Acetaminophen 325 MG Tab PO ONE ×2 (12:21→12:39)
[2024-08-14 12:36] LABS: A/G RATIO 0.9 (1-2); ALANINE AMINOTRANSFERASE,ALT 75 U/L (14-59); ALBUMIN 3.7 g/dl (3.4-5.0); ALKALINE PHOSPHATASE 77 U/L (46-116); ANION GAP 11.9 (5-15); ASPARTATE AMNIOTRANSFERASE,AST 48 U/L (15-37); BILIRUBIN TOTAL 0.5 mg/dL (0.2-1.0); BLOOD UREA NITROGEN,BUN 13 mg/dL (7-18); BUN/CREATININE RATIO 14.4 (14-18); CARBON DIOXIDE,CO2 30 mEq/L (21-32); CHLORIDE,CL 102 mEq/L (98-107); CREATINE KINASE,CK 162 U/L (26-192); CREATININE 0.9 mg/dL (0.55-1.02); EST CRCL DRUG DOSING (CG) 56.68 mL/min; ESTIMATED GFR 73 mL/min (>60); GLUCOSE RANDOM 101 mg/dL (70-99); LIPASE 43 U/L (16-77); MAGNESIUM 1.9 mg/dL (1.8-2.4); POTASSIUM,K 3.9 mEq/L (3.5-5.1); PROTEIN TOTAL,TP 7.7 g/dl (6.4-8.2); SODIUM,NA 140 mEq/L (136-145)
[2024-08-14 12:45] LABS: TROPONIN I HIGH SENSITIVITY < 4 pg/mL (<=51)
[2024-08-14] MEDS: Ketorolac 30 MG/ML SDV IVPUSH ONE (13:00)
[2024-08-14 14:09] LABS: APPEARANCE,URINE CLEAR (Clear); BILIRUBIN,URINE NEGATIVE (Negative); COLOR,URINE YELLOW (Yellow); GLUCOSE,URINE NEGATIVE (Negative); KETONES,URINE NEGATIVE (Negative); LEUKOCYTE ESTERASE,URINE 1+ (Negative); NITRITE,URINE NEGATIVE (Negative); OCCULT BLOOD,URINE NEGATIVE (Negative); PROTEIN,URINE NEGATIVE (Negative); UROBILINOGEN,URINE 0.2 (0.2-1.0)
[2024-08-14 14:19] LABS: BACTERIA,URINE FEW /hpf (FEW); MUCUS,URINE FEW /hpf (FEW); RBC,URINE 0-5 /hpf (0-5)
[2024-08-14 14:26] LABS: BARBITURATE SCREEN,URINE NEGATIVE (CUTOFF=200); BENZODIAZEPINES SCREEN,URINE NEGATIVE (CUTOFF=150); BUPRENORPHINE SCREEN,URINE NEGATIVE (CUTOFF=10); METHADONE SCREEN, URINE NEGATIVE (CUTOFF=200); METHAMPHETAMINES SCREEN, URINE NEGATIVE (CUTOFF=500); OXYCODONE SCREEN,URINE NEGATIVE (CUT0FF=100); THC SCREEN,URINE 20 NG/ML NEGATIVE (CUTOFF=50)
[2024-08-14 14:29] LABS: AMPHETAMINES SCREEN, URINE NEGATIVE (CUTOFF=500)
[2024-08-14 14:53] VITALS: BP 112/66; PULSE 84
== END 2024-08-14 14:45 | disposition home or self-care (01) ==
LOC: JD.ED 11:36
DX: R42 Dizziness and giddiness (principal); I10 Essential (primary) hypertension; E78.5 Hyperlipidemia, unspecified; Z86.16 Personal history of COVID-19; Z90.49 Acquired absence of other specified parts of digestive tract; Z88.8 Allergy status to other drugs, medicaments and biological substances; Z91.018 Allergy to other foods; Z88.5 Allergy status to narcotic agent; Z79.899 Other long term (current) drug therapy
CPT/HCPCS: 36415; 71045; 80053; 80306; 81001; 82550; 83690; 83735; 83880; 84484; 85025; 93005; 96374; 96375; 99285; A9270; J1885; J2405; J7030; 93010; 99283

== ENCOUNTER 2025-01-13 09:59 | Emergency (ER) | payer OTHER ==
[2025-01-13] MEDS ORDERED: Sodium Chloride 0.9% 10 ML Syringe FLUSH PRN (10:12)
[2025-01-13] MEDS: LORazepam 2 MG/ML SDV IVPUSH ONE ×2 (10:20→12:13)
[2025-01-13 10:27] LABS: BASOPHILS ABSOLUTE AUTO 0.1 K/mm3 (0.0-0.2); BASOPHILS PERCENT AUTO 0.7 % (0.0-1.0); EOSINOPHILS ABSOLUTE AUTO 0.1 K/mm3 (0.0-0.4); EOSINOPHILS PERCENT AUTO 1.4 % (0.0-6.0); IMMATURE GRAN ABSOLUTE AUTO 0.03 K/mm3 (0.00-0.05); IMMATURE GRAN PERCENT AUTO 0.3 % (0.0-0.4); LYMPHOCYTES ABSOLUTE AUTO 2.8 K/mm3 (1.0-4.8); LYMPHOCYTES PERCENT AUTO 31.0 % (24.0-44.0); MEAN PLATELET VOLUME 10.0 fl (9.4-12.3); MONOCYTES ABSOLUTE AUTO 0.5 K/mm3 (0.0-0.8); MONOCYTES PERCENT AUTO 5.6 % (0.0-8.0); NEUTROPHILS ABSOLUTE AUTO 5.5 K/mm3 (1.8-7.7); NEUTROPHILS PERCENT AUTO 61.0 % (41.0-71.0); NRBC ABSOLUTE 0.00 (0.00-0.02); NRBC PERCENT 0.0 % (0.0-0.2); PLATELET COUNT,PLT 249 K/mm3 (150-400); RED BLOOD CELL COUNT 5.28 M/mm3 (4.10-5.30); WHITE BLOOD CELL COUNT,WBC 9.05 K/mm3 (3.9-11.3)
[2025-01-13 10:47] LABS: A/G RATIO 1.1 (1-2); ALANINE AMINOTRANSFERASE,ALT 30.0 U/L (14-59); ASPARTATE AMNIOTRANSFERASE,AST 18.0 U/L (15-37); BILIRUBIN TOTAL 0.6 mg/dL (0.2-1.0); BLOOD UREA NITROGEN,BUN 24.0 mg/dL (7-18); CARBON DIOXIDE,CO2 26.0 mEq/L (21-32); CHLORIDE,CL 101.0 mEq/L (98-107); CREATININE 1.1 mg/dL (0.55-1.02); EST CRCL DRUG DOSING (CG) 46.38 mL/min; ESTIMATED GFR 57.0 mL/min (>60); GLUCOSE RANDOM 118.0 mg/dL (70-99); POTASSIUM,K 3.8 mEq/L (3.5-5.1); PROTEIN TOTAL,TP 7.9 g/dl (6.4-8.2); SODIUM,NA 140.0 mEq/L (136-145); TROPONIN I HIGH SENSITIVITY 5.0 pg/mL (<=51)
[2025-01-13] MEDS: Diphtheria,Pertussis(Acell),Tetanus Vaccine 0.5 ML Syringe IM ONE (12:17)
[2025-01-13 14:59] VITALS: BP 110/83; PULSE 90
== END 2025-01-13 14:35 | disposition home or self-care (01) ==
LOC: JD.ED 09:59
DX: R07.89 Other chest pain (principal); R06.02 Shortness of breath; F43.20 Adjustment disorder, unspecified; I10 Essential (primary) hypertension; Z88.8 Allergy status to other drugs, medicaments and biological substances; Z79.899 Other long term (current) drug therapy; Z86.16 Personal history of COVID-19; Z90.710 Acquired absence of both cervix and uterus
CPT/HCPCS: 36415; 71045; 80053; 83735; 84484; 85025; 90471; 90715; 93005; 96374; 96375; 96376; 99285; A9270; J2060; J1171